=== PATIENT | female | born 1985 | race African-American/Black ===

== ENCOUNTER 2016-12-24 12:01 | Emergency (ER) | payer OTHER ==
[~2016-12-24] VITALS: Ht 165.1 cm; Wt 78.0 kg
[2016-12-24 12:13] VITALS: BP 127/96
--- NOTE | 2016-12-24 12:19 | NUR ---
PT PRESENTS TO ER W/C/O COUGH X1 WEEK. DENIES N/V/D; SKIN IS PINK/WARM/DRY; AAOX4 WITH EVEN AND STEADY GAIT; LUNGS CLEAR BL; HR EVEN AND REGULAR; PT DENIES ANY FEVER, OR CP AT THIS TIME; PATIENT STATES PAIN OF 4/10 AT THIS TIME; VSS; PATIENT POSITIONED FOR COMFORT; HOB ELEVATED; BEDRAILS UP X2; BED DOWN. ER MD MADE AWARE OF PT STATUS.
--- NOTE | 2016-12-24 12:19 | NUR ---
Patient ambulated to bed 04.
--- NOTE | 2016-12-24 12:44 | NUR ---
Dr. Yi evaluating patient at bedside.
[2016-12-24 13:03] VITALS: BP 127/96
--- NOTE | 2016-12-24 13:03 | NUR ---
Patient discharged with v/s stable. Written and verbal after care instructions given and explained. Patient alert, oriented and verbalized understanding of instructions. Ambulatory with steady gait. All questions addressed prior to discharge. ID band removed. Patient advised to follow up with PMD. Rx of AZITHROMYCIN given, REFUSES DR LARRY KINNEY AWARE. Patient educated on indication of medication including possible reaction and side effects. Opportunity to ask questions provided and answered.
== END 2016-12-24 13:03 | disposition home or self-care (01) ==
LOC: MED 12:01
DX: J06.9 Acute upper respiratory infection, unspecified (principal); Z88.0 Allergy status to penicillin; Z88.1 Allergy status to other antibiotic agents
CPT/HCPCS: 99283

== ENCOUNTER 2017-01-05 12:45 | Emergency (ER) | payer OTHER ==
[~2017-01-05] VITALS: Ht 165.1 cm; Wt 80.9 kg
[2017-01-05 12:58] VITALS: BP 107/75
--- NOTE | 2017-01-05 13:25 | NUR ---
PATIENT IS A 31 YO FEMALE BIB SELF FOR COUGH FOR TWO WEEKS. AWAKE AND ALERT NO ACUTE DISTRESS WAS SEEN HERE TWO WEEKS AGO. SEEN HERE AT THIS TIME.
[2017-01-05 13:37] VITALS: BP 116/79
--- NOTE | 2017-01-05 13:37 | NUR ---
Patient discharged with v/s stable. Written and verbal after care instructions given and explained. Patient alert, oriented and verbalized understanding of instructions. Ambulatory with steady gait. All questions addressed prior to discharge. ID band removed. Patient advised to follow up with PMD. Rx of PREDNISONE 20MG TAB given. Patient educated on indication of medication including possible reaction and side effects. Opportunity to ask questions provided and answered.
== END 2017-01-05 13:37 | disposition home or self-care (01) ==
LOC: MED 12:45
DX: J40 Bronchitis, not specified as acute or chronic (principal); J44.9 Chronic obstructive pulmonary disease, unspecified; Z88.0 Allergy status to penicillin; Z88.1 Allergy status to other antibiotic agents
CPT/HCPCS: 99282

== ENCOUNTER 2017-09-17 12:41 | Emergency (ER) | payer SELFPAY ==
--- NOTE | 2017-09-17 12:55 | NUR ---
PATIENT CALLED TO BE TRIAGED NO ANSWER
--- NOTE | 2017-09-17 13:06 | NUR ---
CALLED TO BE TRIAGED NO ANSWER
--- NOTE | 2017-09-17 13:14 | NUR ---
PATIENT LEFT WITHOUT BEING SEEN BY DR. JUAREZ. NO FURTHER CARE PROVIDED FOR PATIENT.
== END 2017-09-17 12:55 | disposition left against medical advice (07) ==
LOC: MED 12:41
DX: Z53.21 Procedure and treatment not carried out due to patient leaving prior to being seen by health care provider (principal)

== ENCOUNTER 2017-11-02 08:40 | Emergency (ER) | payer OTHER ==
[~2017-11-02] VITALS: Ht 165.1 cm; Wt 85.3 kg
--- NOTE | 2017-11-02 08:45 | NUR ---
Note undone in EDM - 11/02/17 at 0913 by [email or web address] 31 y.o female came to the ED with her boyfriend and child for vaginal spotting that started on Thursday the (6 days). Pt stated that for the past 6 days it was very light spotting but starting this morning, she was heavily bleeding and stated that she bled through 1 pad since she woke up at 0700. Pt stated she is 6 weeks , LMP is September 24 and her first OBG-YN apt is scheduled for November 20 with [facility]. . Pt states has nausea; denies fever, fatigue, V/D. Abd is soft, nontender. Present and active bowel sounds in all 4 quadrants. s1s2 heard. Lungs clear bilaterally. Pt denies all medical hx.
[2017-11-02 08:52] VITALS: BP 115/81
--- NOTE | 2017-11-02 08:55 | NUR ---
PATIENT AMB. TO BED #12 WITH FAMILY
--- NOTE | 2017-11-02 08:57 | NUR ---
31 y.o female came to the ED with her boyfriend and child for vaginal spotting that started on Thursday the (6 days). Pt stated that for the past 6 days it was very light spotting but starting this morning, she was heavily bleeding and stated that she bled through 1 pad since she woke up at 0700. Pt stated she is 6 weeks , LMP is September 24 and her first OBG-YN apt is scheduled for November 20 with [facility]. . Pt states has nausea; denies fever, fatigue, V/D. Abd is soft, nontender. Present and active bowel sounds in all 4 quadrants. s1s2 heard. Lungs clear bilaterally. Pt denies all medical hx.
--- NOTE | 2017-11-02 09:07 | NUR ---
DR WEEMS EVALUATING AT BEDSIDE
--- NOTE | 2017-11-02 09:10 | NUR ---
Dr. Lu at bedside.
[2017-11-02 10:00] LABS: BASOPHILS % (AUTO) 0.7 % (0.0-2.0); EOSINOPHILS # (AUTO) 0.2 K/uL (0-0.4); EOSINOPHILS % (AUTO) 3.4 % (0.0-4.0); HEMATOCRIT 38.6 % (36-48); HEMOGLOBIN 12.9 g/dL (12.0-16.0); LYMPHOCYTES # (AUTO) 1.8 K/uL (2.5-16.5); MEAN CORPUSCULAR HEMOGLOBIN 29 pg (27-31); MEAN CORPUSCULAR HGB CONC 33 g/dL (33-37); MEAN CORPUSCULAR VOLUME 87.2 fL (80-94); MONOCYTES # (AUTO) 0.6 K/uL (0.8-1.0); MONOCYTES % (AUTO) 9.8 % (1.7-9.3); NEUTROPHILS # (AUTO) 3.3 K/uL (1.8-7.7); NEUTROPHILS % (AUTO) 55.1 % (42.2-75.2); PLATELET COUNT (AUTO) 279 K/uL (140-450); RED BLOOD CELL COUNT(AUTO) 4.43 MIL/uL (4.20-5.40); RED CELL DISTRIBUTION WIDTH 13.1 % (11.6-13.7); WHITE BLOOD COUNT (AUTO) 5.9 K/uL (4.8-10.8)
[2017-11-02 11:19] LABS: BILIRUBIN,URINE NEGATIVE (NEGATIVE); COLOR,URINE YELLOW (YELLOW); LEUKOCYTE ESTERASE ,URINE NEGATIVE (NEGATIVE); NITRITE, URINE NEGATIVE (NEGATIVE); UGLUCOSE NEGATIVE (NEGATIVE)
--- NOTE | 2017-11-02 11:20 | NUR ---
D/c pt home in personal vehicle with and son. Educated pt on new Rx (Zofran), keeping OBG-YN apt on Nov 20, emergency s/sx and when to call 911, come back to the ED, or go see PCP. Answered all pt questions and pt denied further questions at this time. Removed pt wrist band. Pt and family ambulated to exit.
[2017-11-02 11:21] VITALS: BP 120/88
[2017-11-02 11:31] LABS: APPEARANCE,URINE SLIGHTLY HAZY (CLEAR); BLOOD, URINE 1+ (NEGATIVE); RBC,URINE 0-5 (RARE) /HPF (0-5); WBC,URINE 0-5 (RARE) /HPF (0-5)
== END 2017-11-02 11:20 | disposition home or self-care (01) ==
LOC: MED 08:40
DX: O20.0 Threatened abortion (principal); Z3A.01 Less than 8 weeks gestation of pregnancy; J44.9 Chronic obstructive pulmonary disease, unspecified; Z88.0 Allergy status to penicillin; Z88.1 Allergy status to other antibiotic agents
CPT/HCPCS: 36415; 76801; 76817; 81001; 81025; 84702; 85025; 99285; Q0092

== ENCOUNTER 2019-01-22 10:59 | Emergency (ER) | payer OTHER ==
[~2019-01-22] VITALS: Ht 170.2 cm; Wt 83.5 kg
[2019-01-22 11:06] VITALS: BP 113/66
--- NOTE | 2019-01-22 11:10 | NUR ---
PT COMES TO ER C/O AB PAIN WITH NAUSEA AND VAGINAL SPOTTING X 2 DAYS. LMP DECEMBER 02, 2018 5, LIVING 3 [facility]- PREVIOUS EPTOPIC
[2019-01-22] MEDS ORDERED: ACETAMINOPHEN EXTRA STRENGTH 500 MG TAB PO ONE (11:35)
[2019-01-22] MEDS ORDERED: NACL 0.9% 1,000 ML IV ONE (11:35)
[2019-01-22] MEDS ORDERED: METOCLOPRAMIDE 10 MG/2 ML INJ VIAL IVP ONE (11:35)
--- NOTE | 2019-01-22 12:00 | NUR ---
US AT BEDSIDE
[2019-01-22 12:06] LABS: APPEARANCE,URINE CLEAR (CLEAR); BILIRUBIN,URINE NEGATIVE (NEGATIVE); BLOOD, URINE NEGATIVE (NEGATIVE); COLOR,URINE YELLOW (YELLOW); LEUKOCYTE ESTERASE ,URINE NEGATIVE (NEGATIVE); NITRITE, URINE NEGATIVE (NEGATIVE); UGLUCOSE NEGATIVE (NEGATIVE)
[2019-01-22 12:07] LABS: BASOPHILS % (AUTO) 0.7 % (0.0-2.0); EOSINOPHILS # (AUTO) 0.2 K/uL (0-0.4); EOSINOPHILS % (AUTO) 3.4 % (0.0-4.0); HEMATOCRIT 39.5 % (36-48); HEMOGLOBIN 13.1 g/dL (12.0-16.0); LYMPHOCYTES # (AUTO) 1.3 K/uL (2.5-16.5); MEAN CORPUSCULAR HEMOGLOBIN 29 pg (27-31); MEAN CORPUSCULAR HGB CONC 33 g/dL (33-37); MEAN CORPUSCULAR VOLUME 87.5 fL (80-94); MONOCYTES # (AUTO) 0.5 K/uL (0.8-1.0); MONOCYTES % (AUTO) 9.5 % (1.7-9.3); NEUTROPHILS # (AUTO) 3.1 K/uL (1.8-7.7); NEUTROPHILS % (AUTO) 61.4 % (42.2-75.2); PLATELET COUNT (AUTO) 265 K/uL (140-450); RED BLOOD CELL COUNT(AUTO) 4.51 MIL/uL (4.20-5.40); RED CELL DISTRIBUTION WIDTH 13.9 % (11.6-13.7)
[2019-01-22 12:32] LABS: ALBUMIN 3.6 g/dL (3.4-5.0); ANION GAP 14.3 (8-16); CARBON DIOXIDE 24.5 mmol/L (21-32); CREATININE 0.7 mg/dL (0.6-1.3); POTASSIUM 3.8 mmol/L (3.5-5.1); TOTAL BILIRUBIN 0.5 mg/dL (0.0-1.0)
--- NOTE | 2019-01-22 13:40 | NUR ---
IV REMOVED, 800 ML OF NS INFUSED. PT STATES PAIN 02/18. NADR
[2019-01-22 13:42] VITALS: BP 121/68
--- NOTE | 2019-01-22 13:42 | NUR ---
Patient discharged with v/s stable. Written and verbal after care instructions given and explained REGARDIGN THREATENED MISCARRIAGE. Patient alert, oriented and verbalized understanding of instructions. Ambulatory with steady gait. All questions addressed prior to discharge. ID band removed. Patient advised to follow up with PMD. Rx of REGLAN given. Patient educated on indication of medication including possible reaction and side effects. Opportunity to ask questions provided and answered. PT ADVISED TO RETURN TO ER IN 2 DAYS FOR REPEAT HCG
== END 2019-01-22 13:42 | disposition home or self-care (01) ==
LOC: MED 10:59
DX: O20.0 Threatened abortion (principal); O99.511 Diseases of the respiratory system complicating pregnancy, first trimester; J44.9 Chronic obstructive pulmonary disease, unspecified; Z3A.01 Less than 8 weeks gestation of pregnancy; Z98.890 Other specified postprocedural states; Z88.0 Allergy status to penicillin; Z88.1 Allergy status to other antibiotic agents; Z88.8 Allergy status to other drugs, medicaments and biological substances
CPT/HCPCS: 36415; 76817; 80053; 81003; 81025; 84702; 85025; 86900; 86901; 96374; 99284; J2765; Q0092